=== PATIENT | female | born 1960 | race Caucasian/White ===

== ENCOUNTER 2019-10-04 16:10 | Emergency (ER) | payer MEDICARE ==
[2019-10-04 16:17] VITALS: TEMP 97.9
--- NOTE | 2019-10-04 17:07 | ED ---
General Adult HPI - General Chief complaint: Extremity Injury, Upper Stated complaint: arm pain Time Seen by Provider: 10/04/19 16:26 Source: patient, RN notes reviewed Mode of arrival: ambulatory Limitations: no limitations - History of Present Illness Initial comments: 58-year-old female with a past medical history of hypertension presents to the emergency department for a chief complaint of right shoulder pain. Patient states that back in [place] she tripped over a piece of cement and fell onto the right shoulder. States she had x-ray shortly after that which appeared normal. However since that time she has had continued pain in the right shoulder. States this worsens with movement. States that she was out of town for several months and just returned so wanted to be evaluated again. Patient has not yet followed up with primary care for this. Patient was thinking she could get an MRI through the emergency department.Patient has no other complaints at this time including shortness of breath, chest pain, abdominal pain, nausea or vomiting, headache, or visual changes. - Related Data Allergies Allergy/AdvReac Type Severity Reaction Status Date / Time Sulfa (Sulfonamide Allergy Nausea Verified 10/04/19 16:14 Antibiotics) Review of Systems ROS Statement: Those systems with pertinent positive or pertinent negative responses have been documented in the HPI. ROS Other: All systems not noted in ROS Statement are negative. Past Medical History Past Medical History: Hypertension History of Any Multi-Drug Resistant Organisms: Unobtainable Past Surgical History: No Surgical Hx Reported Past Psychological History: Schizoaffective Disorder Smoking Status: Current every day smoker Past Alcohol Use History: None Reported Past Drug Use History: None Reported General Exam Limitations: no limitations General appearance: alert, in no apparent distress Head exam: Present: atraumatic, normocephalic, normal inspection Eye exam: Present: normal appearance, PERRL, EOMI. Absent: scleral icterus, conjunctival injection, periorbital swelling ENT exam: Present: normal exam Neck exam: Present: normal inspection. Absent: tenderness, meningismus, lymphadenopathy Respiratory exam: Present: normal lung sounds bilaterally. Absent: respiratory distress, wheezes, rales, rhonchi, stridor Cardiovascular Exam: Present: regular rate, normal rhythm, normal heart sounds. Absent: systolic murmur, diastolic murmur, rubs, gallop, clicks Extremities exam: Present: tenderness (Tenderness is noted in the generalized right shoulder.), normal capillary refill (Capillary refill less than 2 seconds, radial pulse 2+ in the right upper extremity.), other (Sensation intact in the right upper extremity.). Absent: full ROM (Patient has 90 flexion and abduction of the right shoulder.), joint swelling (No edema of the right shoulder. No ecchymosis or contusion.) Course Vital Signs 10/04/19 16:14 Temperature 97.9 F Pulse Rate 109 H Respiratory 18 Rate Blood Pressure 117/83 O2 Sat by Pulse 98 Oximetry Medical Decision Making - Medical Decision Making Neurovascular status intact. no Edema. Motion elicits pain. X-ray of the right shoulder shows osteoarthritic joint space narrowing. No fracture seen. Pain is chronic in nature has been ongoing for 3 months. At this time I recommend patient follow-up with Dr. Miller for possibly an MRI or orthopedic referral. Recommend she return here if she has any worsening symptoms. Disposition Clinical Impression: Shoulder pain, right Disposition: HOME SELF-CARE Condition: Good Instructions (If sedation given, give patient instructions): Shoulder Pain (ED) Additional Instructions: Please take Motrin and Tylenol for pain. Follow-up with Dr. Miller in one to 2 days. Return to the emergency department if you have any worsening symptoms. Is patient prescribed a controlled substance at d/c from ED?: No Referrals: David Miller MD [Primary Care Provider] - 1-2 days Time of Disposition: 17:45
--- NOTE | 2019-10-04 17:26 | XR ---
EXAMINATION TYPE: XR shoulder complete RT DATE OF EXAM: 10/04/2019 COMPARISON: NONE HISTORY: Shoulder pain TECHNIQUE: 3 views FINDINGS: There is narrowing of the glenohumeral joint space. There is spurring of the humeral head. I see no fracture nor dislocation. IMPRESSION: Osteoarthritic joint space narrowing. No fracture seen.
[2019-10-04] MEDS ORDERED: IBUPROFEN 600 MG TAB PO STA (17:47)
[2019-10-04 17:53] VITALS: BP 145/80; PULSE 96; RESP 16
== END 2019-10-04 18:01 | disposition home or self-care (01) ==
LOC: EC 16:10
DX: M19.011 Primary osteoarthritis, right shoulder (principal); F17.200 Nicotine dependence, unspecified, uncomplicated; Z88.2 Allergy status to sulfonamides
CPT/HCPCS: 99283

== ENCOUNTER 2019-11-18 02:58 | Emergency (ER) | payer MEDICARE ==
[2019-11-18 03:07] VITALS: TEMP 98
[2019-11-18] MEDS ORDERED: IPRATROPIUM-ALBUTEROL 3 ML NEB INHALATION STA (03:20)
--- NOTE | 2019-11-18 03:34 | ED ---
URI HPI - General Chief Complaint: Upper Respiratory Infection Stated Complaint: URI Time Seen by Provider: 11/18/19 03:11 Source: patient Mode of arrival: ambulatory Limitations: no limitations - History of Present Illness Initial Comments: Patient is a 58-year-old female presenting to emergency Department with complaints of shortness of breath and severe cough 2 days. Patient states he's been having upper respiratory type symptoms for the last 2-3 days but seems to worsen in the last few hours. Patient is having trouble sleeping secondary to the cough and shortness of breath. She does have history of asthma, no COPD. She states she has been having hot flashes and chills, no fevers. She denies nausea, vomiting, abdominal pain, chest pain. She has no other complaints at this time. Upon arrival to the ER, her vitals are stable. - Related Data Previous Rx's Medication Instructions Recorded Albuterol Inhaler [Ventolin Hfa 1 - 2 puff INHALATION RT-Q6H PRN 11/18/19 Inhaler] #1 inhaler methylPREDNISolone [Medrol Dose 4 mg PO DIRECTED #1 pack 11/18/19 Pack] Allergies Allergy/AdvReac Type Severity Reaction Status Date / Time Sulfa (Sulfonamide Allergy Nausea Verified 11/18/19 03:07 Antibiotics) Review of Systems ROS Statement: Those systems with pertinent positive or pertinent negative responses have been documented in the HPI. ROS Other: All systems not noted in ROS Statement are negative. Past Medical History Past Medical History: Hypertension History of Any Multi-Drug Resistant Organisms: Unobtainable Past Surgical History: No Surgical Hx Reported Past Psychological History: Schizoaffective Disorder Smoking Status: Current every day smoker Past Alcohol Use History: Abuse, Daily, Heavy Past Drug Use History: None Reported General Exam - General Exam Comments Initial Comments: GENERAL: Well-appearing, well-nourished and in no acute distress. HEAD: Atraumatic, normocephalic. EYES: Pupils equal round and reactive to light, extraocular movements intact, sclera anicteric, conjunctiva are normal. ENT: TMs normal, nares patent, oropharynx clear without exudates. Moist mucous membranes. NECK: Normal range of motion, supple without lymphadenopathy or JVD. LUNGS: Patient has significant wheezing bilateral, no rales or rhonchi. HEART: Regular rate and rhythm without murmurs, rubs or gallops. ABDOMEN: Soft, nontender, normoactive bowel sounds. No guarding, no rebound. No masses appreciated. : Deferred EXTREMITIES: Normal range of motion, no pitting or edema. No clubbing or cyanosis. NEUROLOGICAL: Normal speech, normal gait. PSYCH: Normal mood, normal affect. SKIN: Warm, Dry, normal turgor, no rashes or lesions noted. Limitations: no limitations Course Vital Signs 11/18/19 11/18/19 11/18/19 03:05 03:15 03:25 Temperature 98 F Pulse Rate 93 88 Respiratory 18 22 Rate Blood Pressure 174/91 O2 Sat by Pulse 96 Oximetry 11/18/19 03:34 Temperature Pulse Rate 92 Respiratory Rate Blood Pressure O2 Sat by Pulse Oximetry Medical Decision Making - Medical Decision Making Patient is a 58-year-old female presenting with cough and shortness of breath 2 days. She has history of asthma. Vitals are stable upon arrival. Patient was given breathing treatment for wheezing and tightness. Her symptoms improved after treatment. Chest x-ray reveals no acute abnormalities. Discussed with patient this most likely bronchitis. Patient will be given Solu-Medrol before DC and placed on Medrol Dosepak to start tomorrow. Patient also be given inhaler for shortness of breath and cough. She is in agreement with this plan of care. She'll follow up with PCP. Return parameters were discussed with the patient she verbalized understanding. - Lab Data Lab Results 11/18/19 Range/Units 03:30 Influenza Type A RNA Not Detected (Not Detectd) Influenza Type B (PCR) Not Detected (Not Detectd) Disposition Clinical Impression: Bronchitis Disposition: HOME SELF-CARE Condition: Stable Instructions (If sedation given, give patient instructions): Acute Bronchitis (ED) Additional Instructions: Please return to the Emergency Department if symptoms worsen or any other concerns. Use inhaler as needed for shortness of breath as well as cough. Take steroids as prescribed. Follow-up with PCP. Prescriptions: methylPREDNISolone [Medrol Dose Pack] 4 mg PO DIRECTED #1 pack Albuterol Inhaler [Ventolin Hfa Inhaler] 1 - 2 puff INHALATION RT-Q6H PRN #1 inhaler PRN Reason: Shortness Of Breath Is patient prescribed a controlled substance at d/c from ED?: No Referrals: Ivan Crisostomo DO [Primary Care Provider] - 1-2 days
--- NOTE | 2019-11-18 03:56 | XR ---
EXAMINATION TYPE: XR chest 2V DATE OF EXAM: 11/18/2019 COMPARISON: NONE HISTORY: Cough and short of breath TECHNIQUE: FINDINGS: Heart and mediastinum are normal. Lungs are clear. Diaphragm is normal. Bony thorax appears normal. IMPRESSION: Normal chest. Normal heart.
[2019-11-18] MEDS ORDERED: methylPREDNISolone SOD SUCCI 125 MG/2 ML VIAL IM ONE (04:05)
[2019-11-18 04:13] VITALS: BP 144/85; PULSE 91; RESP 18
== END 2019-11-18 04:19 | disposition home or self-care (01) ==
LOC: EC 02:58
DX: J40 Bronchitis, not specified as acute or chronic (principal); F17.200 Nicotine dependence, unspecified, uncomplicated; F10.10 Alcohol abuse, uncomplicated; Z88.2 Allergy status to sulfonamides; Z87.09 Personal history of other diseases of the respiratory system
CPT/HCPCS: 94640; 87502; 71046; 99285; 96372; J2930